=== PATIENT | female | born 1960 | race Caucasian/White ===

== ENCOUNTER → 2017-04-13 | Outpatient (CLI) | payer BC ==
[~2017-04-13] MED LIST: EXCEDRIN DPS1 TAB PO; MAG-OX400 MG PO; MOTRIN-DPS400 MG PO; OMEGA-3 DPS1000 MG PO; PERCOCET 5 DPS1 TAB PO; SENOKOT S1 TAB PO; THERA1 EACH PO; VITAMIN C1000 MG PO
== END | disposition home or self-care (01) ==
LOC: PTH.S 09:18
DX: Z01.812 Encounter for preprocedural laboratory examination (principal); I10 Essential (primary) hypertension; E11.9 Type 2 diabetes mellitus without complications; E66.01 Morbid (severe) obesity due to excess calories; Z79.2 Long term (current) use of antibiotics